=== PATIENT | female | born 1990 | race Caucasian/White ===

== ENCOUNTER 2018-04-16 18:35 | Emergency (ER) | payer BC ==
[2018-04-16] MEDS ORDERED: Diphtheria,Pertussis(Acell),Tetanus Vaccine 0.5 ML Syringe IM ONE (18:49)
[2018-04-16] MEDS ORDERED: Lidocaine 1% 20 ML MDV INJECT ONE (18:49)
--- NOTE | 2018-04-16 18:49 | EDM.PDOC ---
ED HPI GENERAL MEDICAL PROBLEM - General Chief Complaint: Laceration Stated Complaint: PT HURT MIDDLE LT FINGER Time Seen by Provider: 04/16/18 18:46 Source of Information: Reports: Patient History Limitations: Reports: No Limitations - History of Present Illness INITIAL COMMENTS - FREE TEXT/NARRATIVE: HISTORY AND PHYSICAL: 27-year-old female presenting with a laceration to her right finger History of Present Illness: []Patient was cutting avocado dinner her fianc had just sharpened all the knives and as she was putting it down caught her finger is in a laceration Patient does not recall her last tetanus vaccine Denies any other illnesses no cough, fevers or throat or flu symptoms Review of Systems: As per history of present illness and below otherwise all systems reviewed and negative. Past medical history: As per history of present illness and as reviewed below otherwise noncontributory. Surgical history: As per history of present illness and as reviewed below otherwise noncontributory. Social history: No reported history of drug or alcohol abuse. Family history: As per history of present illness and as reviewed below otherwise noncontributory. Physical exam: Alert and oriented female answering questions appropriately in full sentences without any shortness of breath. HEENT: Atraumatic, normocehpalic, pupils reactive, negative for conjunctival pallor or scleral icterus, mucous membranes moist, throat clear, neck supple, nontender, trachea midline. Lungs: Clear to auscultation, breath sounds equal bilaterally, chest non tender. Heart: S1S2, regular, negative for clicks, rubs, or JVD. Abdomen: Soft, nondistended, nontender. Negative for masses or hepatossplenmegaly. Negative for costovertebral tenderness. Pelvis: Stable nontender. Genitourinary: Deferred. Rectal: Deferred Extremities: Middle finger with laceration on the palmar surface at the PIP, negative for cords or calf pain. Neurovascular unremarkable. Neuro: Awake, alert, oriented. Cranial nerves II through XII unremarkable. Cerebellum unremarkable. Motor and sensory unremarkable throughout. Exam nonfocal. Diagnostics: [] Therapeutics: []suture Impression: []laceration Plan: []Discharge to home tylenol alternating with Ibuprofen for discomfort. Definitive disposition and diagnosis as appropriate pending reevaluation and review of above. Onset: Today, Sudden Duration: Minutes: Location: Reports: Upper Extremity, Right Quality: Reports: Stabbing Severity: Moderate Improves with: Reports: None Worsens with: Reports: None Associated Symptoms: Reports: No Other Symptoms Left 3-Middle finger Pain Score (Numeric/FACES): 7 - Related Data Allergies Allergy/AdvReac Type Severity Reaction Status Date / Time No Known Allergies Allergy Verified 04/16/18 18:46 Home Meds: Home Meds . [No Known Home Meds] 04/16/18 [History] ED ROS GENERAL - Review of Systems Review Of Systems: ROS reveals no pertinent complaints other than HPI. ED EXAM, SKIN/RASH Exam: See Below (see dictation) ED SKIN PROCEDURES - Laceration/Wound Repair Left Medial Finger Lac/Wound length In cm: 2 Appearance: Subcutaneous, Clean Distal NVT: Neuro & Vascular Intact, No Tendon Injury Anesthetic Type: Local Local Anesthesia - Lidocaine (Xylocaine): 1% Plain Local Anesthetic Volume: 4cc Skin Prep: Saline Exploration/Debridement/Repair: Wound Explored, In a Bloodless Field, Explored to Base Closed with: Sutures Suture Type: Nylon, Interrupted, Simple Drain Placement: No Sterile Dressing Applied: Nurse Tetanus Status Addressed: Yes Complications: No Course - Vital Signs Last Recorded V/S: Last Vital Signs Temp 36.1 C 04/16/18 18:43 Pulse 68 04/16/18 18:43 Resp 16 04/16/18 18:43 BP 126/66 04/16/18 18:43 Pulse Ox - Orders/Labs/Meds Orders: Active Orders 24 hr Category Date Time Status Vaccines to be Administered [RC] PER UNIT ROUTINE Care 04/16/18 18:49 Active Meds: Medications Discontinued Medications Generic Name Dose Route Start Last Admin Trade Name Mata PRN Reason Stop Dose Admin Bacitracin Confirm 04/16/18 19:04 Bacitracin Oint 1 Gm Administered 04/16/18 19:05 Dose 1 dose .ROUTE .STK-MED ONE Diphtheria/Tetanus/Acell Pertussis 0.5 ml 04/16/18 18:49 Adacel IM 04/16/18 18:50 .ONCE ONE Lidocaine HCl 20 ml 04/16/18 18:49 Xylocaine 1% INJECT 04/16/18 18:50 ONETIME ONE Departure - Departure Time of Disposition: 19:19 Disposition: Home, Self-Care 01 Condition: Good Clinical Impression: Laceration - Discharge Information Instructions: Laceration Care, Adult, [id number] Forms: ED Department Discharge Additional Instructions: The following information is given to patients seen in the emergency department who are being discharged to home. This information is to outline your options for follow-up care. We provide all patients seen in our emergency department with a follow-up referral. The need for follow-up, as well as the timing and circumstances, are variable depending upon the specifics of your emergency department visit. If you don't have a primary care physician on staff, we will provide you with a referral. We always advise you to contact your personal physician following an emergency department visit to inform them of the circumstance of the visit and for follow-up with them and/or the need for any referrals to a consulting specialist. The emergency department will also refer you to a specialist when appropriate. This referral assures that you have the opportunity for followup care with a specialist. All of these measure are taken in an effort to provide you with optimal care, which includes your followup. Under all circumstances we always encourage you to contact your private physician who remains a resource for coordinating your care. When calling for followup care, please make the office aware that this follow-up is from your recent emergency room visit. If for any reason you are refused follow-up, please contact the [facility] emergency department at and asked to speak to the emergency department charge nurse. Sutures out in 7 days Follow-up with primary care as needed Return to emergency room as discussed and directed - My Orders Last 24 Hours: My Active Orders 04/16/18 18:49 Vaccines to be Administered [RC] PER UNIT ROUTINE - Assessment/Plan Last 24 Hours: My Active Orders 04/16/18 18:49 Vaccines to be Administered [RC] PER UNIT ROUTINE
[2018-04-16] MEDS ORDERED: Bacitracin Oint 1 GM U/D Packet ONE (19:04)
== END 2018-04-16 19:45 | disposition home or self-care (01) ==
LOC: MW.ED 18:35
DX: S61.212A Laceration without foreign body of right middle finger without damage to nail, initial encounter (principal); Z23 Encounter for immunization; W26.0XXA Contact with knife, initial encounter
CPT/HCPCS: 12001; 90471; 90715; 99282; 99282-25

== ENCOUNTER 2018-08-02 10:27 | Emergency (ER) | payer BC ==
[2018-08-02] MEDS ORDERED: Sodium Chloride 0.9% 1,000 ML IV ONE (10:33)
[2018-08-02] MEDS ORDERED: Ondansetron 4 MG/2 ML SDV IVPUSH ONE (10:33)
[2018-08-02] MEDS ORDERED: Ketorolac 30 MG/ML SDV IVPUSH ONE (10:33)
--- NOTE | 2018-08-02 11:06 | EDM.PDOC ---
ED HPI GENERAL MEDICAL PROBLEM - General Chief Complaint: Abdominal Pain Stated Complaint: ABDOMINAL PAIN Time Seen by Provider: 08/02/18 10:33 Source of Information: Reports: Patient History Limitations: Reports: No Limitations - History of Present Illness INITIAL COMMENTS - FREE TEXT/NARRATIVE: HISTORY AND PHYSICAL: History of present illness: Patient is a 27 year old female who presents to the emergency room with complaints of right lower quadrant pain x 24 hours. Patient believes that she is constipated as she does have chronic constipation for the past 7 years. She states she routinely uses enemas, OTC laxatives, fiber products, and stool softeners - and feels like "I'm not able to get everything out". Reports she has a lot of abdominal pressure and sharp right lower quadrant pain. Reports intermittent nausea and mild dysuria. Denies any fever, chills, chest pain, shortness of breath or cough. Denies any vomiting or diarrhea. Review of systems: As per history of present illness and below otherwise all systems reviewed and negative. Past medical history: As per history of present illness and as reviewed below otherwise noncontributory. Surgical history: As per history of present illness and as reviewed below otherwise noncontributory. Social history: No reported history of drug or alcohol abuse. Family history: As per history of present illness and as reviewed below otherwise noncontributory. Physical exam: General: Well-developed and well-nourished 27-year-old female. Alert and oriented. Nontoxic appearing and in no acute distress. HEENT: Atraumatic, normocephalic, pupils equal and reactive bilaterally, negative for conjunctival pallor or scleral icterus, mucous membranes moist, throat clear, neck supple, nontender, trachea midline. No drooling or trismus noted. No meningeal signs Lungs: Clear to auscultation, breath sounds equal bilaterally, chest nontender. Heart: S1S2, regular rate and rhythm without overt murmur Abdomen: Semi firm to touch, nondistended, left and right lower quadrant tenderness. Negative for masses or hepatosplenomegaly. Negative for costovertebral tenderness. Pelvis: Stable nontender. Genitourinary: Deferred. Rectal: Deferred. Skin: Intact, warm, dry. No lesions or rashes noted. Extremities: Atraumatic, negative for cords or calf pain. Neurovascular unremarkable. Neuro: Awake, alert, oriented. Cranial nerves II through XII unremarkable. Cerebellum unremarkable. Motor and sensory unremarkable throughout. Exam nonfocal. Notes: Patient states she has right lower quadrant pain but is related to being constipated. She did do an enema this morning and did have a bowel movement. But now has crampy type abdominal discomfort. We will do a CT of the abdomen to rule out appendicitis. Lab work is unremarkable. Vital signs are stable. CT shows no acute findings within the abdomen or pelvis. This information was shared with the patient. She states she is frustrated as she has tried multiple [id number] products for her chronic constipation. I did offer to give her an enema/fleets enema while here in the emergency room, which she declines, stating that she has done these at home with only minimal relief. She currently does not have a primary care provider, is willing to allow us to set her up and appointment for continued care and management of this. Patient has an appointment made with Dr Golden for tomorrow at 1430. Diagnostics: CBC, CMP, UA, CT abd/pelvis Therapeutics: IV fluids, zofran, toradol Prescription: None Impression: Abdominal pain History of constipation Plan: 1. Increase your oral fluids. High fiber diet. Regular physical activity. 2. 1 capful of Miralax daily and 1 tab Colace twice daily for bowel management. 3. An appointment has been made for you to see Dr Golden on 08/03/2018 at 1430 for further evaluation and management of your chronic abdominal pain/constipation. Return to the ED as needed and as discussed Definitive disposition and diagnosis as appropriate pending reevaluation and review of above. Duration: Day(s):, Chronic Location: Reports: Abdomen Right Lower Abdominal Pain Score (Numeric/FACES): 10 - Related Data Allergies Allergy/AdvReac Type Severity Reaction Status Date / Time No Known Allergies Allergy Verified 08/02/18 10:36 Home Meds: Home Meds . [No Known Home Meds] 04/16/18 [History] Past Medical History - Past Health History Medical/Surgical History: Denies Medical/Surgical History - Infectious Disease History Infectious Disease History: Reports: None Social & Family History - Family History Family Medical History: Noncontributory - Tobacco Use Smoking Status *Q: Never Smoker - Caffeine Use Caffeine Use: Reports: None - Recreational Drug Use Recreational Drug Use: No ED ROS GENERAL - Review of Systems Review Of Systems: ROS reveals no pertinent complaints other than HPI. ED EXAM, GI/ABD - Physical Exam Exam: See Below (See dictation) Course - Vital Signs Last Recorded V/S: Last Vital Signs Temp 98.1 F 08/02/18 10:37 Pulse 58 L 08/02/18 12:08 Resp 15 08/02/18 12:08 BP 112/73 08/02/18 12:08 Pulse Ox 98 08/02/18 12:08 - Orders/Labs/Meds Orders: Active Orders 24 hr Category Date Time Status HCG QUALITATIVE,URINE [URCHEM] Stat Lab 08/02/18 10:33 Ordered UA W/MICROSCOPIC [URIN] Stat Lab 08/02/18 10:33 Ordered Labs: Laboratory Tests 08/02/18 08/02/18 08/02/18 Range/Units 10:33 10:33 10:45 WBC 6.02 (4.0-11.0) K/uL RBC 4.83 (4.30-5.90) M/uL Hgb 15.1 (12.0-16.0) g/dL Hct 42.5 (36.0-46.0) % MCV 88.0 (80.0-98.0) fL MCH 31.3 (27.0-32.0) pg MCHC 35.5 (31.0-37.0) g/dL RDW Std Deviation 40.4 (28.0-62.0) fl RDW Coeff of Xochitl 13 (11.0-15.0) % Plt Count 263 (150-400) K/uL MPV 9.40 (7.40-12.00) fL Neut % (Auto) 60.2 (48.0-80.0) % Lymph % (Auto) 30.6 (16.0-40.0) % [place] % (Auto) 7.0 (0.0-15.0) % Eos % (Auto) 1.5 (0.0-7.0) % Baso % (Auto) 0.7 (0.0-1.5) % Neut # (Auto) 3.6 (1.4-5.7) K/uL Lymph # (Auto) 1.8 (0.6-2.4) K/uL [place] # (Auto) 0.4 (0.0-0.8) K/uL Eos # (Auto) 0.1 (0.0-0.7) K/uL Baso # (Auto) 0.0 (0.0-0.1) K/uL Nucleated RBC % 0.0 /100WBC Nucleated RBCs # 0 K/uL Sodium (136-145) mmol/L Potassium (3.5-5.1) mmol/L Chloride (98-107) mmol/L Carbon Dioxide (21.0-32.0) mmol/L BUN (7.0-18.0) mg/dL Creatinine (0.6-1.0) mg/dL Est Cr Clr Drug Dosing mL/min Estimated GFR (MDRD) ml/min Glucose (74-106) mg/dL Calcium (8.5-10.1) mg/dL Total Bilirubin (0.2-1.0) mg/dL AST (15-37) IU/L ALT (14-63) IU/L Alkaline Phosphatase (46-116) U/L Total Protein (6.4-8.2) g/dL Albumin (3.4-5.0) g/dL Globulin (2.0-3.5) g/dL Albumin/Globulin Ratio (1.3-2.8) Urine Color YELLOW Urine Appearance CLEAR Urine pH 7.0 (5.0-8.0) Ur Specific Murdock 1.015 (1.001-1.035) Urine Protein NEGATIVE (NEGATIVE) mg/dL Urine Glucose (UA) NEGATIVE (NEGATIVE) mg/dL Urine Ketones NEGATIVE (NEGATIVE) mg/dL Urine Occult Blood NEGATIVE (NEGATIVE) Urine Nitrite NEGATIVE (NEGATIVE) Urine Bilirubin NEGATIVE (NEGATIVE) Urine Urobilinogen 0.2 (<2.0) EU/dL Ur Leukocyte Esterase NEGATIVE (NEGATIVE) Urine RBC NONE SEEN (0-2/HPF) Urine WBC 0-1 (0-5/HPF) Ur Epithelial Cells FEW (NONE-FEW) Urine Bacteria FEW (NEGATIVE) Urine HCG, Qual NEGATIVE (NEGATIVE) 08/02/18 Range/Units 10:45 WBC (4.0-11.0) K/uL RBC (4.30-5.90) M/uL Hgb (12.0-16.0) g/dL Hct (36.0-46.0) % MCV (80.0-98.0) fL MCH (27.0-32.0) pg MCHC (31.0-37.0) g/dL RDW Std Deviation (28.0-62.0) fl RDW Coeff of Xochitl (11.0-15.0) % Plt Count (150-400) K/uL MPV (7.40-12.00) fL Neut % (Auto) (48.0-80.0) % Lymph % (Auto) (16.0-40.0) % Oz[place] % (Auto) (0.0-15.0) % Eos % (Auto) (0.0-7.0) % Baso % (Auto) (0.0-1.5) % Neut # (Auto) (1.4-5.7) K/uL Lymph # (Auto) (0.6-2.4) K/uL [place] # (Auto) (0.0-0.8) K/uL Eos # (Auto) (0.0-0.7) K/uL Baso # (Auto) (0.0-0.1) K/uL Nucleated RBC % /100WBC Nucleated RBCs # K/uL Sodium 138 (136-145) mmol/L Potassium 4.0 (3.5-5.1) mmol/L Chloride 105 (98-107) mmol/L Carbon Dioxide 27.2 (21.0-32.0) mmol/L BUN 15 (7.0-18.0) mg/dL Creatinine 1.0 (0.6-1.0) mg/dL Est Cr Clr Drug Dosing 82.90 mL/min Estimated GFR (MDRD) > 60.0 ml/min Glucose 82 (74-106) mg/dL Calcium 8.9 (8.5-10.1) mg/dL Total Bilirubin 0.3 (0.2-1.0) mg/dL AST 12 L (15-37) IU/L ALT 18 (14-63) IU/L Alkaline Phosphatase 105 (46-116) U/L Total Protein 7.7 (6.4-8.2) g/dL Albumin 4.2 (3.4-5.0) g/dL Globulin 3.5 (2.0-3.5) g/dL Albumin/Globulin Ratio 1.2 L (1.3-2.8) Urine Color Urine Appearance Urine pH (5.0-8.0) Ur Specific Murdock (1.001-1.035) Urine Protein (NEGATIVE) mg/dL Urine Glucose (UA) (NEGATIVE) mg/dL Urine Ketones (NEGATIVE) mg/dL Urine Occult Blood (NEGATIVE) Urine Nitrite (NEGATIVE) Urine Bilirubin (NEGATIVE) Urine Urobilinogen (<2.0) EU/dL Ur Leukocyte Esterase (NEGATIVE) Urine RBC (0-2/HPF) Urine WBC (0-5/HPF) Ur Epithelial Cells (NONE-FEW) Urine Bacteria (NEGATIVE) Urine HCG, Qual (NEGATIVE) Meds: Medications Discontinued Medications Generic Name Dose Route Start Last Admin Trade Name Freq PRN Reason Stop Dose Admin Dicyclomine HCl 10 mg 08/02/18 12:26 08/02/18 12:32 Bentyl PO 08/02/18 12:27 10 mg ONETIME ONE Administration Sodium Chloride 1,000 mls @ 999 mls/hr 08/02/18 10:33 08/02/18 10:48 Normal Saline IV 08/02/18 11:33 999 mls/hr STAT ONE Administration Iopamidol 90 ml 08/02/18 11:46 08/02/18 11:47 Isovue Multipack-370 (76%) IVPUSH 08/02/18 11:47 90 ml ONETIME ONE Administration Ketorolac Tromethamine 30 mg 08/02/18 10:33 08/02/18 10:48 Toradol IVPUSH 08/02/18 10:34 30 mg ONETIME ONE Administration Ondansetron HCl 4 mg 08/02/18 10:33 08/02/18 10:48 Zofran IVPUSH 08/02/18 10:34 4 mg ONETIME ONE Administration Departure - Departure Time of Disposition: 12:51 Disposition: Home, Self-Care 01 Clinical Impression: History of chronic constipation Abdominal pain Qualifiers: Abdominal location: right lower quadrant Qualified Code(s): R10.31 - Right lower quadrant pain - Discharge Information Instructions: Abdominal Pain, Adult, Constipation, Adult, [id number] Referrals: PCP,None [Primary Care Provider] - Forms: ED Department Discharge Additional Instructions: The following information is given to patients seen in the emergency department who are being discharged to home. This information is to outline your options for follow-up care. We provide all patients seen in our emergency department with a follow-up referral. The need for follow-up, as well as the timing and circumstances, are variable depending upon the specifics of your emergency department visit. If you don't have a primary care physician on staff, we will provide you with a referral. We always advise you to contact your personal physician following an emergency department visit to inform them of the circumstance of the visit and for follow-up with them and/or the need for any referrals to a consulting specialist. The emergency department will also refer you to a specialist when appropriate. This referral assures that you have the opportunity for follow-up care with a specialist. All of these measure are taken in an effort to provide you with optimal care, which includes your follow-up. Under all circumstances we always encourage you to contact your private physician who remains a resource for coordinating your care. When calling for follow-up care, please make the office aware that this follow-up is from your recent emergency room visit. If for any reason you are refused follow-up, please contact the [facility] Emergency Department at and asked to speak to the emergency department charge nurse. [facility] [address] [place] [address] 1. Increase your oral fluids. High fiber diet. Regular physical activity. 2. 1 capful of Miralax daily and 1 tab Colace twice daily for bowel management. 3. An appointment has been made for you to see Dr Golden on 08/03/2018 at 1430 for further evaluation and management of your chronic abdominal pain/constipation. Return to the ED as needed and as discussed - My Orders Last 24 Hours: My Active Orders 08/02/18 10:33 HCG QUALITATIVE,URINE [URCHEM] Stat UA W/MICROSCOPIC [URIN] Stat - Assessment/Plan Last 24 Hours: My Active Orders 08/02/18 10:33 HCG QUALITATIVE,URINE [URCHEM] Stat UA W/MICROSCOPIC [URIN] Stat
[2018-08-02 11:15] LABS: CHLORIDE,CL 105 mmol/L (98-107); SODIUM,NA 138 mmol/L (136-145)
[2018-08-02] MEDS ORDERED: Iopamidol 755 MG/ML 200 ML Multipack Bottle IVPUSH ONE (11:46)
--- NOTE | 2018-08-02 11:58 | CT ---
CT of the abdomen and pelvis with contrast. HISTORY: Pain TECHNIQUE: Axial CT images were obtained of the abdomen and pelvis following administration of 91 mL of Isovue-370 in the right antecubital fossa without complication. Coronal and sagittal reconstructio ns obtained. FINDINGS: The lung bases are clear, no pleural effusion. The liver, spleen, adrenal glands, and pancreas appear normal. The gallbladder is normal. There is no bulky retroperitoneal lymphadenopathy or abdominal ascites. The kidneys enhance and function symmetrically without evidence of obstructive uropathy. There is a s mall cyst within the right kidney. The large and small bowel are normal in caliber without evidence of obstruction. Trace free pelvic fl uid, likely physiologic. No focal pericolonic inflammation or stranding. The appendix is normal. No p elvic lymphadenopathy. The uterus and ovaries are grossly unremarkable. No suspicious osseous abnormalities identified. IMPRESSION: 1. No acute findings noted within the abdomen or pelvis.
[2018-08-02] MEDS ORDERED: Dicyclomine 10 MG Cap PO ONE (12:26)
== END 2018-08-02 13:00 | disposition home or self-care (01) ==
LOC: MW.ED 10:27
DX: K59.00 Constipation, unspecified (principal)
CPT/HCPCS: 36415; 74177; 80053; 81001; 81025; 85025; 96361; 96374; 96375; 99284; A9270; J1885; J2405; J7040; Q9967

== ENCOUNTER 2019-03-05 16:21 | Emergency (ER) | payer OTHER | END 2019-03-05 16:35 | disposition left against medical advice (07) | LOC: MW.ED 16:21 | DX: Z53.21 Procedure and treatment not carried out due to patient leaving prior to being seen by health care provider (principal) ==

== ENCOUNTER 2022-07-05 06:50 | Emergency (ER) | payer OTHER ==
[2022-07-05] MEDS ORDERED: Dexamethasone 10 MG/ML SDV ONE (06:53)
[2022-07-05] MEDS ORDERED: Famotidine 20 MG/2 ML SDV ONE (06:53)
[2022-07-05] MEDS ORDERED: Famotidine 20 MG/2 ML SDV IVPUSH STA (07:39)
[2022-07-05] MEDS ORDERED: Dexamethasone 10 MG/ML SDV IVPUSH STA (07:39)
== END 2022-07-05 08:18 | disposition home or self-care (01) ==
LOC: MW.ED 06:50
DX: T78.40XA Allergy, unspecified, initial encounter (principal); Z20.822 Contact with and (suspected) exposure to COVID-19
CPT/HCPCS: 36415; 84703; 87635; 96374; 96375; 99283; J1100; J3490; U0002

== ENCOUNTER 2024-06-17 11:50 | Emergency (ER) | payer BC ==
[2024-06-17 12:45] LABS: APPEARANCE,URINE CLOUDY; COLOR,URINE RED; GLUCOSE,URINE NEGATIVE (NEGATIVE); KETONES,URINE NEGATIVE (NEGATIVE); LEUKOCYTE ESTERASE,URINE TRACE (NEGATIVE); NITRITE,URINE POSITIVE (NEGATIVE); OCCULT BLOOD,URINE LARGE (NEGATIVE); PH,URINE 5.5 (5.0-8.0); PROTEIN,URINE 30 mg/dL (NEGATIVE); UROBILINOGEN,URINE 0.2 EU/dL (<2.0)
[2024-06-17 12:50] LABS: BILIRUBIN,URINE SMALL (NEGATIVE)
[2024-06-17 12:54] LABS: BACTERIA,URINE RARE (NEGATIVE); EPITHELIAL CELLS,URINE RARE (NONE-FEW); RBC,URINE TOO NUMEROUS TO CT (0-2/HPF)
[2024-06-17 12:59] LABS: BASOPHILS ABSOLUTE AUTO 0.04 K/uL (0.00-0.20); BASOPHILS PERCENT AUTO 0.5 % (0.0-1.0); EOSINOPHILS ABSOLUTE AUTO 0.05 K/uL (0.00-0.45); EOSINOPHILS PERCENT AUTO 0.7 % (0.0-6.0); HEMOGLOBIN 14.3 g/dL (12.0-16.0); IMMATURE GRAN ABSOLUTE AUTO 0.02 K/uL (0.00-0.05); IMMATURE GRAN PERCENT AUTO 0.3 % (0.0-0.4); LYMPHOCYTES ABSOLUTE AUTO 2.05 K/uL (1.00-4.80); LYMPHOCYTES PERCENT AUTO 27.9 % (24.0-44.0); MEAN CORPUSCULAR HGB CONC 34.9 g/dL (32.0-36.0); MEAN CORPUSCULAR VOLUME 88.9 fL (83.0-99.0); MEAN PLATELET VOLUME 8.6 fL (9.4-12.3); MONOCYTES ABSOLUTE AUTO 0.37 K/uL (0.00-0.80); NEUTROPHILS ABSOLUTE AUTO 4.83 K/uL (1.80-7.70); NEUTROPHILS PERCENT AUTO 65.6 % (41.0-71.0); PLATELET COUNT,PLT 240 K/uL (150-400); RED BLOOD CELL COUNT 4.61 M/uL (4.10-5.30); WHITE BLOOD CELL COUNT,WBC 7.36 K/uL (3.9-11.3)
[2024-06-17 13:18] LABS: INR 1.05 (0.86-1.11)
[2024-06-17 13:45] LABS: A/G RATIO 1.4 (0.9-1.6); ALBUMIN 4.2 g/dL (3.4-5.0); BILIRUBIN TOTAL 0.4 mg/dL (0.2-1.0); CALCIUM 8.9 mg/dL (8.5-10.1); CARBON DIOXIDE,CO2 27.8 mmol/L (21.0-32.0); CREATININE 0.9 mg/dL (0.6-1.0); EST CRCL DRUG DOSING (CG) 87.27 mL/min; POTASSIUM,K 3.9 mmol/L (3.5-5.1); PROTEIN TOTAL,TP 7.2 g/dL (6.4-8.2)
[2024-06-17] MEDS: Acetaminophen 500 MG Tab PO ONE (14:20)
[2024-06-17] MEDS: Cefdinir 300 MG Cap PO ONE (14:21)
== END 2024-06-17 15:24 | disposition home or self-care (01) ==
LOC: MW.ED 11:50
DX: O03.9 Complete or unspecified spontaneous abortion without complication (principal); Z75.8 Other problems related to medical facilities and other health care; Z79.899 Other long term (current) drug therapy; Z3A.08 8 weeks gestation of pregnancy
CPT/HCPCS: 36415; 76817; 80053; 81001; 84702; 85025; 85610; 86900; 86901; 87086; 99284; A9270; 99283